=== PATIENT | female | born 1940 | race Caucasian/White ===

== ENCOUNTER 2019-02-02 21:02 | Inpatient (IN) | payer MEDICARE ==
[2019-02-02] MEDS: ONDANSETRON 4 MG INJ IV (22:02)
[2019-02-02 22:03] LABS: ADD MAN DIFF? NO; BASOPHILS % 0.5 % (0.0-2.0); EOSINOPHILS % 0.3 % (0.0-7.0); HEMATOCRIT 42.6 % (37.0-47.0); HEMOGLOBIN 13.9 g/dl (12.0-16.0); LYMPHOCYTES # 1.3 10^3/ul (0.8-2.9); MEAN CORPUSCULAR HGB CONC 32.6 g/dl (32.0-37.0); MEAN CORPUSCULAR VOLUME 79.8 fl (82.0-101.0); MEAN PLATELET VOLUME 9.5 fl (7.4-10.4); MONOCYTE # 0.5 10^3/ul (0.3-0.9); NEUTROPHIL # 4.5 10^3/ul (1.6-7.5); PLATELET COUNT 244 10^3/UL (140-415); RED BLOOD COUNT 5.34 10^6/ul (4.20-5.40); RED CELL DISTRIBUTION WIDTH 13.6 % (11.5-14.5)
[2019-02-02 22:03] LABS: WHITE BLOOD COUNT 6.4 10^3/ul (4.8-10.8)
[2019-02-02] MEDS: SOD CHLORIDE 0.9% 500 ML IV (22:03)
[2019-02-02 22:22] LABS: INR 0.89; PROTIME 12.1 Sec (11.9-14.9); PT RATIO 0.9
[2019-02-02 22:23] LABS: ANION GAP 11 (5-13); BLOOD UREA NITROGEN 9 mg/dl (7-20); CARBON DIOXIDE 25 mmol/L (21-31); CHLORIDE 100 mmol/L (97-110); CREATININE 0.43 mg/dl (0.44-1.00); GLUCOSE 283 mg/dl (70-220); PARTIAL THROMBOPLASTIN TIME 25.8 Sec (23.0-35.0); SODIUM 136 mmol/L (135-144)
[2019-02-02 22:37] LABS: TROPONIN-I 0.254 ng/ml (0.000-0.120)
[2019-02-02] MEDS: ASPIRIN 81 MG TAB PO (22:48)
[2019-02-03] MEDS ORDERED: ONDANSETRON 4 MG INJ IV ×2 (00:30→06:00)
[2019-02-03] MEDS ORDERED: ACETAMINOPHEN 325 MG TAB PO ×2 (00:30→06:00)
[2019-02-03] MEDS ORDERED: GLUCAGON 1 MG INJ IM (06:00)
[2019-02-03] MEDS ORDERED: DEXTROSE 50% 50 ML SYRINGE IV ×2 (06:00)
[2019-02-03] MEDS ORDERED: GLUCOSE GEL 15 GRAM TUBE BUCCAL (06:00)
[2019-02-03] MEDS ORDERED: NACL 0.9% 3 ML SYG IV (06:00)
[2019-02-03] MEDS ORDERED: GLUCOSE GEL 15 GRAM TUBE PO ×2 (06:00)
[2019-02-03] MEDS ORDERED: NITROGLYCERIN (SL) 0.4 MG TAB SL (06:00)
[2019-02-03] MEDS ORDERED: ALBUTEROL/IPRATROPIUM (NEB) 3 ML AMP HHN (06:00)
[2019-02-03] MEDS: ATORVASTATIN 80 MG TAB PO ×2 (06:18→20:32)
[2019-02-03] MEDS: ENOXAPARIN 60 MG/0.6 ML SYG SC (06:21)
[2019-02-03] MEDS: DEXTROSE 5%-0.45% NACL 1,000 ML IV (06:23)
[2019-02-03 06:27] LABS: ADD MAN DIFF? NO
[2019-02-03 06:42] LABS: WHITE BLOOD COUNT 5.2 10^3/ul (4.8-10.8)
[2019-02-03 06:42] LABS: BASOPHILS % 0.4 % (0.0-2.0); EOSINOPHILS % 0.8 % (0.0-7.0); HEMATOCRIT 39.2 % (37.0-47.0); HEMOGLOBIN 12.4 g/dl (12.0-16.0); LYMPHOCYTES # 1.5 10^3/ul (0.8-2.9); LYMPHOCYTES % 29.4 % (15.0-51.0); MEAN CORPUSCULAR HEMOGLOBIN 25.9 pg (29.0-33.0); MEAN CORPUSCULAR HGB CONC 31.6 g/dl (32.0-37.0); MEAN CORPUSCULAR VOLUME 81.8 fl (82.0-101.0); MEAN PLATELET VOLUME 9.7 fl (7.4-10.4); MONOCYTE # 0.5 10^3/ul (0.3-0.9); MONOCYTES % 9.5 % (0.0-11.0); NEUTROPHIL # 3.1 10^3/ul (1.6-7.5); NEUTROPHILS % 59.7 % (39.0-77.0); PLATELET COUNT 233 10^3/UL (140-415); RED BLOOD COUNT 4.79 10^6/ul (4.20-5.40); RED CELL DISTRIBUTION WIDTH 13.8 % (11.5-14.5)
[2019-02-03 06:55] LABS: CREATINE KINASE 53 IU/L (23-200)
[2019-02-03 07:08] LABS: CK INDEX 3.3; CK-MB 1.75 ng/ml (0.0-2.4)
[2019-02-03 07:10] LABS: ALANINE AMINOTRANSFERASE 24 IU/L (13-69); ALBUMIN 3.6 g/dl (3.3-4.9); ALBUMIN/GLOBULIN RATIO 1.24; ALKALINE PHOSPHATASE 136 IU/L (42-121); ANION GAP 7 (5-13); ASPARTATE AMINO TRANSFERASE 31 IU/L (15-46); BILIRUBIN,INDIRECT 0.5 mg/dl (0-1.1); BILIRUBIN,TOTAL 0.5 mg/dl (0.2-1.3); BLOOD UREA NITROGEN 10 mg/dl (7-20); CALCIUM 9.5 mg/dl (8.4-10.2); CARBON DIOXIDE 28 mmol/L (21-31); CHLORIDE 105 mmol/L (97-110); CHOL/HDL RATIO 5.1 RATIO; CHOLESTEROL 237 mg/dl (100-200); CREATININE 0.44 mg/dl (0.44-1.00); GLUCOSE 225 mg/dl (70-220); HDL CHOLESTEROL 46 mg/dl (33-92); LDL CHOLESTEROL,CALCULATED 164 mg/dl; SODIUM 140 mmol/L (135-144); TOTAL PROTEIN 6.5 g/dl (6.1-8.1); TRIGLYCERIDES 134 mg/dl (0-149)
[2019-02-03 07:13] LABS: TROPONIN-I 0.277 ng/ml (0.000-0.120)
[2019-02-03] MEDS: ASPIRIN 81 MG TAB PO (08:13)
[2019-02-03] MEDS: INSULIN ASPART [NOVOLOG] 3 ML PEN SC ×6 (08:18→21:31)
[2019-02-03] MEDS ORDERED: ENOXAPARIN 40 MG/0.4 ML SYG SC (09:00)
[2019-02-03 10:35] LABS: CREATINE KINASE 50 IU/L (23-200)
[2019-02-03 10:49] LABS: CK INDEX 2.6; CK-MB 1.31 ng/ml (0.0-2.4)
[2019-02-03 11:02] LABS: TROPONIN-I 0.217 ng/ml (0.000-0.120)
[2019-02-03] MEDS: IOHEXOL 100 ML (12:38)
[2019-02-03] MEDS: SOD CHLORIDE 0.9% 100 ML (12:38)
[2019-02-03] MEDS: NITROGLYCERIN AEROSOL (4.9 GM) (12:45)
[2019-02-03] MEDS: LISINOPRIL 5 MG TAB PO (13:26)
[2019-02-03] MEDS: MECLIZINE 12.5 MG TAB PO ×2 (13:26→20:32)
[2019-02-03] MEDS: INSULIN GLARGINE [LANTus] (100 UNITS/ML) SYG SC (13:36)
[2019-02-03] MEDS: ENOXAPARIN 80 MG/0.8 ML SYG SC (21:30)
[2019-02-04] MEDS: ACCU-CHEK XX (02:35)
[2019-02-04 05:48] LABS: ADD MAN DIFF? NO
[2019-02-04 05:58] LABS: WHITE BLOOD COUNT 4.5 10^3/ul (4.8-10.8)
[2019-02-04 05:58] LABS: BASOPHILS % 0.9 % (0.0-2.0); EOSINOPHILS # 0.1 10^3/ul (0.0-0.5); EOSINOPHILS % 1.3 % (0.0-7.0); HEMATOCRIT 40.3 % (37.0-47.0); HEMOGLOBIN 12.7 g/dl (12.0-16.0); LYMPHOCYTES # 1.7 10^3/ul (0.8-2.9); LYMPHOCYTES % 38.2 % (15.0-51.0); MEAN CORPUSCULAR HGB CONC 31.5 g/dl (32.0-37.0); MEAN CORPUSCULAR VOLUME 82.4 fl (82.0-101.0); MEAN PLATELET VOLUME 9.7 fl (7.4-10.4); MONOCYTE # 0.4 10^3/ul (0.3-0.9); MONOCYTES % 8.3 % (0.0-11.0); NEUTROPHIL # 2.3 10^3/ul (1.6-7.5); NEUTROPHILS % 51.1 % (39.0-77.0); PLATELET COUNT 224 10^3/UL (140-415); RED BLOOD COUNT 4.89 10^6/ul (4.20-5.40); RED CELL DISTRIBUTION WIDTH 13.9 % (11.5-14.5)
[2019-02-04 06:07] LABS: CREATINE KINASE 35 IU/L (23-200)
[2019-02-04 06:19] LABS: CK INDEX 1.2; CK-MB 0.43 ng/ml (0.0-2.4); TROPONIN-I 0.108 ng/ml (0.000-0.120)
[2019-02-04 07:04] LABS: ANION GAP 6 (5-13); BLOOD UREA NITROGEN 16 mg/dl (7-20); CALCIUM 9.5 mg/dl (8.4-10.2); CARBON DIOXIDE 28 mmol/L (21-31); CHLORIDE 108 mmol/L (97-110); CREATININE 0.47 mg/dl (0.44-1.00); GLUCOSE 172 mg/dl (70-220); MAGNESIUM 2.1 mg/dl (1.7-2.5); PHOSPHORUS 3.5 mg/dl (2.5-4.9); POTASSIUM 3.8 mmol/L (3.5-5.1); SODIUM 142 mmol/L (135-144)
[2019-02-04] MEDS: INSULIN ASPART [NOVOLOG] 3 ML PEN SC ×4 (07:47→12:19)
[2019-02-04] MEDS: INSULIN GLARGINE [LANTus] (100 UNITS/ML) SYG SC (07:48)
[2019-02-04] MEDS: LISINOPRIL 5 MG TAB PO (08:46)
[2019-02-04] MEDS: ASPIRIN 81 MG TAB PO (08:46)
[2019-02-04] MEDS: MECLIZINE 12.5 MG TAB PO ×2 (08:46→13:00)
[2019-02-04] MEDS ORDERED: ENOXAPARIN 40 MG/0.4 ML SYG SC (09:00)
[2019-02-04] MEDS: ENOXAPARIN 80 MG/0.8 ML SYG SC (09:06)
== END 2019-02-04 13:20 | disposition home or self-care (01) | DRG 149 ==
LOC: 6WM 02-03 01:09 → E/R 21:02 → 6WM 02-03 00:03
PROVIDERS: Internal Medicine
DX: R42 Dizziness and giddiness (principal); I25.10 Atherosclerotic heart disease of native coronary artery without angina pectoris; E11.65 Type 2 diabetes mellitus with hyperglycemia; I10 Essential (primary) hypertension; E78.5 Hyperlipidemia, unspecified
CPT/HCPCS: 36415; 70450; 71045; 75571-59; 75574; 80048; 80053; 80061; 82550; 82553; 82962; 83036; 83735; 84100; 84443; 84484; 85025; 85610; 85730; 93005; 93306; 96374; 97161; 99285-25